=== PATIENT | female | born 1990 | race American Indian/Alaskan Native ===

== ENCOUNTER 2017-07-25 12:58 | Outpatient (CLI) | payer MEDICAID ==
[2017-07-25 13:22] VITALS: BP 109/73
== END 2017-07-25 14:18 | disposition home or self-care (01) ==
LOC: TRG 12:58
PROVIDERS: ATTEND Obstetrics & Gynecology
DX: Z34.93 Encounter for supervision of normal pregnancy, unspecified, third trimester (principal); Z3A.38 38 weeks gestation of pregnancy
CPT/HCPCS: 59025

== ENCOUNTER 2017-07-28 04:27 | Outpatient (CLI) | payer MEDICAID ==
[2017-07-28 04:37] VITALS: BP 125/62
== END 2017-07-28 05:19 | disposition home or self-care (01) ==
LOC: TRG 04:27
PROVIDERS: ATTEND Obstetrics & Gynecology
DX: O47.1 False labor at or after 37 completed weeks of gestation (principal); Z3A.38 38 weeks gestation of pregnancy

== ENCOUNTER 2017-07-28 16:55 | Inpatient (IN) | payer MEDICAID ==
--- NOTE | 2017-07-28 18:59 | History and Physical Report ---
History of Present Illness Date of examination: 07/28/17 Date of admission: 07/28/17 18:19 Chief complaint: My water broke History of present illness: Patient is a 27 year old who presents with rom at 38 weeks. per patient. baby was to be induced for IUGR on Sunday. She was told that it was the first available date to induce a patient. Her prenatals were not available for revies. Will treat for unknown GBS. Past History Past Medical History: no pertinent history Past Surgical History: no surgical history Social history: single - Obstetrical History Expected Date of Delivery: 08/05/17 Actual Gestation: 38 Week(s) 6 Day(s) : 3 Medications and Allergies Allergies Allergy/AdvReac Type Severity Reaction Status Date / Time No Known Allergies Allergy Unverified 07/25/17 12:59 Home Medications Medication Instructions Recorded Confirmed Last Taken Type No Known Home Medications [No 07/28/17 07/28/17 Unknown History Reported Home Medications] Review of Systems All systems: negative Genitourinary: leakage of fluid - Vital Signs Vital signs: Vital Signs Temp Pulse Resp BP Pulse Ox 98.2 F 103 H 16 121/66 100 07/28/17 17:42 07/28/17 17:42 07/28/17 17:42 07/28/17 17:42 07/28/17 17:42 Temp Pulse Resp BP Pulse Ox 98.2 F 104 H 16 121/66 98 07/28/17 17:42 07/28/17 18:09 07/28/17 17:42 07/28/17 17:47 07/28/17 18:09 - Physical Exam Breasts: Cardiovascular: Regular rate, Normal S1, Normal S2 Lungs: Positive: Clear to auscultation, Normal air movement Abdomen: Positive: normal appearance, soft, normal bowel sounds. Negative: distention, tenderness Vulva: both: normal Vagina: Positive: normal moisture. Negative: discharge Cervix: Negative: lesion, discharge Uterus: Positive: normal size, normal contour Adnexa: both: normal Anus/Rectum: Positive: normal perianal skin, heme negative. Negative: rectal mass, hemorrhoids Extremities: Deep Tendon Reflex Grade: Normal +2 - Obstetrical Cervical Dilatation: 1 Cervical Effacement Percentage: 50 station: -2 Uterine Contraction Pattern: Absent Results All other labs normal. Assessment and Plan IUP at 38.6 weeks here with srom. Doing well. Admit for labor. Anticipate . TReat for GBS unknown.
[2017-07-28] MEDS ORDERED: BRETHINE IVP PRN (19:03)
[2017-07-28] MEDS ORDERED: POLYCILLIN/NS 2 GM/100 ML 2 GM/100 ML BAG IV ONE (19:03)
[2017-07-28] MEDS ORDERED: STADOL IV PRN (19:03)
[2017-07-28] MEDS ORDERED: ePHEDrine SULFATE IV PRN (19:03)
[2017-07-28] MEDS ORDERED: PHENERGAN PO PRN (19:03)
[2017-07-28] MEDS ORDERED: MINERAL OIL PO PRN (19:03)
[2017-07-28] MEDS ORDERED: BRETHINE SUB-Q PRN (19:03)
[2017-07-28] MEDS ORDERED: XYLOCAINE 2% INFILTRATI ONE (19:03)
[2017-07-28] MEDS ORDERED: PITOCin/NS 20 UNIT/1000ML DRIP 20 UNITS/1,000 ML BAG IV SCH (20:00)
[2017-07-28 20:43] LABS: Hematocrit 28.3 % (30.3-42.9); Hemoglobin 9.4 gm/dl (10.1-14.3)
[2017-07-28] MEDS: SUBLIMAZE IV PRN ×2 (20:54→23:16)
[2017-07-28] MEDS: PITOCin/NS 30 UNIT/500ML 30 UNITS/500 ML BAG IV SCH ×2 (21:03→23:23)
[2017-07-28] MEDS: LACTATED RINGERS 1,000 ML IV SCH (21:03)
[2017-07-29] MEDS ORDERED: NARCAN 2 MG/2 ML IV PRN (00:39)
[2017-07-29] MEDS ORDERED: ePHEDrine SULFATE IV PRN (00:39)
--- NOTE | 2017-07-29 00:39 | Anesthesia Consultation ---
Anesthesia Consult and Med Hx Date of service: 07/29/17 - Airway Anesthetic Teeth Evaluation: Good ROM Head & Neck: Adequate Mental/Hyoid Distance: Adequate Mallampati Class: Class II Intubation Access Assessment: Probably Good - Pulmonary Exam CTA: Yes - Cardiac Exam Cardiac Exam: RRR - Pre-Operative Health Status ASA Pre-Surgery Classification: ASA2 Proposed Anesthetic Plan: Epidural, Spinal - Pulmonary Hx Asthma: No COPD: No Hx Pneumonia: No - Cardiovascular System Hx Hypertension: No - Central Nervous System Hx Seizures: No Hx Psychiatric Problems: No - Endocrine Hx Renal Disease: No Hx End Stage Renal Disease: No Hx Hypothyroidism: No Hx Hyperthyroidism: No - Hematic Hx Anemia: Yes (DOES NOT TAKE HER IRON PILLS) Hx Sickle Cell Disease: No - Other Systems Hx Alcohol Use: No Hx Obesity: Yes - Additional Comments Anesthesia Medical History Comments: IUP
[2017-07-29 00:45] LABS: Hematocrit 28.1 % (30.3-42.9); Hemoglobin 9.2 gm/dl (10.1-14.3); Mean Corpuscular HGB Conc 33 % (30-34); Mean Corpuscular Hemoglobin 27 pg (28-32); Mean Corpuscular Volume 83 fl (79-97); Platelet Count 347 K/mm3 (140-440); Red Blood Count 3.37 M/mm3 (3.65-5.03); Red Cell Distribution Width 14.9 % (13.2-15.2); White Blood Count 9.9 K/mm3 (4.5-11.0)
[2017-07-29] MEDS: fentaNYL-BUPIV 2 MCG/ML-0.125% 200 MCG/100 ML BAG EPIDURAL SCH ×2 (01:47→09:26)
[2017-07-29] MEDS: POLYCILLIN/NS 1 GM/50 ML 1 GM/50 ML BAG IV SCH ×3 (02:00→14:27)
[2017-07-29] MEDS: PITOCin/NS 30 UNIT/500ML 30 UNITS/500 ML BAG IV SCH (07:04)
[2017-07-29] MEDS: LACTATED RINGERS 1,000 ML IV SCH (08:04)
[2017-07-29] MEDS ORDERED: ZOFRAN IV PRN ×2 (08:14→16:52)
--- NOTE | 2017-07-29 10:38 | Event Note ---
Date: 07/29/17 Patient is a 27 year old who presents with SROM on yesterday at 1700 with ROM since 12 noon. Patient has only progressed to 8.5cm with a thick, non- reducible anterior lip that has been present for the last 3 hours. Patient has been on 20 miu of pitocin overnight with only minimal progress. Per patient she has IUGR and was to be induced on Sunday. Patient advised that at this point a vaginal delivery is unlikely and that she would need a . Patient reluctant to have done. Patient advised that at 12 noon she would be 24 hours with rom and that would be advised as necessary by [facility]. If patient continues to refuse, I will contact patient's provider. will rexamine at noon.
[2017-07-29] MEDS ORDERED: XYLOCAINE 2% INFILTRATI ONE (10:39)
--- NOTE | 2017-07-29 12:09 | Procedure Note ---
OB Delivery Note - Delivery Date of Delivery: 07/29/17 Surgeon: RAMAN MAGANA Estimated blood loss: 200cc - Vaginal Delivery presentation: vertex Delivery position: OA Intrapartum events: prolonged labor- > = 20hr Delivery induction: none Delivery augmentation: pitocin Delivery monitor: external FHT, external uterine Route of delivery: Delivery placenta: spontaneous Delivery cord: 3 umbilical vessels Episiotomy: none Delivery laceration: none Anesthesia: epidural Delivery comments: Viable male delivered over intact perineum when patient turned over. Placenta delivered spontaneously and intact witn 3vc. No lacerations. Excellent hemostasis. - A at 1 minute: 8 at 5 minutes: 9 Gender: Male (5 pounds)
[2017-07-29] MEDS ORDERED: MOTRIN PO ONE ×2 (12:41→15:00)
[2017-07-29] MEDS ORDERED: PHENERGAN PR PRN (16:52)
[2017-07-29] MEDS ORDERED: PHENERGAN PO PRN (16:52)
[2017-07-29] MEDS ORDERED: DULCOLAX PR PRN (16:52)
[2017-07-29] MEDS ORDERED: BENADRYL PO PRN (16:52)
[2017-07-29] MEDS ORDERED: SODIUM CHLORIDE FLUSH SYRINGE 10 ML IV NR (16:52)
[2017-07-29] MEDS ORDERED: MILK OF MAGNESIA PO PRN (16:52)
[2017-07-29] MEDS ORDERED: TYLENOL PO PRN (16:52)
[2017-07-29] MEDS ORDERED: NORCO 5/325 PO PRN (16:52)
[2017-07-29] MEDS ORDERED: TUCKS PAD TP PRN (16:52)
[2017-07-29] MEDS: COLACE PO SCH (21:00)
[2017-07-29] MEDS: MOTRIN PO SCH (22:45)
[2017-07-30 00:32] LABS: Hematocrit 23.3 % (30.3-42.9); Hemoglobin 7.5 gm/dl (10.1-14.3)
[2017-07-30] MEDS: MOTRIN PO SCH ×3 (06:41→23:06)
--- NOTE | 2017-07-30 08:41 | Progress Note ---
Assessment and Plan A/P PPD#2 doing well no complaionts bottle feeding male desires circum counseled on circ h9.2-7.5 iron tabs given d/c Rx written ambulating and pain control f/u in 4 weeks for PP check O+ Subjective - Subjective Date of service: 07/30/17 Principal diagnosis: s/p Patient reports: appetite normal, voiding normally, pain well controlled, flatus , ambulating normally [place]: doing well, bottle feeding Objective - Vital Signs Latest vital signs: Vital Signs Temp Pulse Resp BP BP 07/29/17 23:30 98.6 F 71 16 101/77 07/29/17 20:00 98.6 F 71 16 121/76 07/29/17 15:54 98.3 F 101 H 20 113/64 07/29/17 14:05 98.7 F 103 H 20 110/65 07/29/17 13:41 113 H 113/55 07/29/17 13:26 113 H 122/58 07/29/17 13:11 120 H 122/73 07/29/17 12:56 113 H 116/64 07/29/17 12:41 109 H 117/66 07/29/17 12:26 99 H 121/58 07/29/17 12:12 106 H 134/64 07/29/17 11:56 102 H 122/65 07/29/17 11:53 97.8 F 102 H 18 122/65 07/29/17 11:31 118 H 116/65 07/29/17 11:01 105 H 113/64 07/29/17 10:02 114 H 144/67 07/29/17 09:31 100 H 114/67 07/29/17 09:01 106 H 98/55 Intake and Output 07/29/17 07/30/17 07/30/17 23:59 07:59 15:59 Intake Total 300 600 Balance 300 600 Intake: Intake, Free Water 300 600 - Exam Breasts: Present: normal Cardiovascular: Present: Regular rate, Normal S1 Lungs: Present: Clear to auscultation, Normal air movement Abdomen: Present: normal appearance, soft, normal bowel sounds. Absent: distention, tenderness, guarding Vulva: both: normal Uterus: Present: normal, firm, fundal height below umbilicus. Absent: bogginess , tenderness Extremities: Present: normal Deep Tendon Reflex Grade: Normal +2 - Labs Labs: Abnormal lab results 07/30/17 Range/Units 00:16 Hgb 7.5 L (10.1-14.3) gm/dl Hct 23.3 L (30.3-42.9) %
--- NOTE | 2017-07-30 08:42 | Discharge Summary ---
Providers - Providers Date of Admission: 07/28/17 18:19 Date of discharge: 07/30/17 Attending physician: SADE COMBS Primary care physician: SADE COMBS Hospitalization Reason for admission: rupture of membranes Delivery: Episiotomy: none Laceration: none Incision: normal Other procedures: none complications: none Discharge diagnosis: IUP at term delivered baby: male Condition at discharge: Good Disposition: DC-01 TO HOME OR SELFCARE Plan - Discharge Medications Prescriptions: Ferrous Sulfate [Feosol 325 MG tab] 325 mg PO TID #60 tablet Ibuprofen [Motrin] 600 mg PO Q8H PRN #30 tablet PRN Reason: Pain oxyCODONE /ACETAMINOPHEN [Percocet 5/325] 1 tab PO Q6HR PRN #30 tablet PRN Reason: Pain - Provider Discharge Summary Activity: routine, no sex for 6 weeks, no strenuous exercise Diet: routine Instructions: routine Additional instructions: [] Smoking cessation referral if applicable(refer to patient education folder for contact #) [] Refer to [facility] Book[facility] Call your doctor immediately for: * Fever > 100.5 * Heavy vaginal bleeding ( >1 pad per hour) * Severe persistent headache * Shortness of breath * Reddened, hot, painful area to leg or breast * Drainage or odor from incision. * Keep incision clean and dry at all times and follow doctor's instructions regarding bathing/showering - Follow up plan Follow up: SADE COMBS MD [Primary Care Provider] - 08/22/17
[2017-07-30] MEDS: COLACE PO SCH ×2 (10:26→22:10)
[2017-07-30] MEDS: PRENATAL VITAMIN PO SCH (10:26)
[2017-07-31] MEDS: MOTRIN PO SCH (05:18)
[2017-07-31 08:41] VITALS: BP 110/67
[2017-07-31] MEDS: COLACE PO SCH (09:50)
[2017-07-31] MEDS: PRENATAL VITAMIN PO SCH (09:50)
== END 2017-07-31 11:00 | disposition home or self-care (01) | DRG 775 ==
LOC: TRG 16:55 → LD 18:19 → TRG 18:19 → OB 07-29 14:11
PROVIDERS: ADMIT Obstetrics & Gynecology; ATTEND Obstetrics & Gynecology
PROC: 10E0XZZ Delivery of Products of Conception, External Approach (ICD-10-PCS; principal; 2017-07-29)
PROC: 3E0R3BZ Introduction of Anesthetic Agent into Spinal Canal, Percutaneous Approach (ICD-10-PCS; 2017-07-29)
PROC: 00HU33Z Insertion of Infusion Device into Spinal Canal, Percutaneous Approach (ICD-10-PCS; 2017-07-29)
DX: O63.9 Long labor, unspecified (principal); Z37.0 Single live birth; Z3A.38 38 weeks gestation of pregnancy; Z68.30 Body mass index [BMI] 30.0-30.9, adult; O99.02 Anemia complicating childbirth; D64.9 Anemia, unspecified; O99.214 Obesity complicating childbirth; E66.9 Obesity, unspecified; O36.5930 Maternal care for other known or suspected poor fetal growth, third trimester, not applicable or unspecified
CPT/HCPCS: 36415; 85014; 85018; 85027; 86592; 86850; 86900; 86901; 88307; 99211; G0463; J0290; J2405; J2590; J3010; J7120

== ENCOUNTER 2018-03-06 11:40 | Emergency (ER) | payer MEDICAID ==
[2018-03-06 11:46] VITALS: BP 115/70
[2018-03-06] MEDS ORDERED: MOTRIN PO ONE (12:10)
--- NOTE | 2018-03-06 12:13 | Emergency Department Report ---
Upper Extremity - HPI Upper Extremity: Right Wrist Occurred When: Today Mechanism: Hyperextension Severity: moderate Symptoms: Yes Pain with Movement, No Deformity, No Limited Range of Movement, No Numbness, No Weakness, No Swelling, No Bruising/Ecchymosis, No Laceration or Abrasion Other History: 27-year-old female past medical history none presents with complaint of several weeks of right wrist pain. Patient denies any direct trauma. States that her right wrist has been aching her for some time at least. 3 weeks. States that last night while playing with his son she may have hyperextended her right wrist. Denies any paresthesias. Denies any direct trauma otherwise. Patient visibly ranging her right wrist without significant difficulty. <CARLIN FARLEY - Last Filed: 03/06/18 13:10> <ROGER ISLAS - Last Filed: 03/06/18 16:19> - HPI Chief Complaint: Extremity Injury, Upper Stated Complaint: RIGHT WRIST PAIN Time Seen by Provider: 03/06/18 12:10 ED Review of Systems ROS: Stated complaint: RIGHT WRIST PAIN Other details as noted in HPI Constitutional: denies: chills, fever Eyes: denies: eye pain, eye discharge, vision change ENT: denies: ear pain, throat pain Respiratory: denies: cough, shortness of breath, wheezing Cardiovascular: denies: chest pain, palpitations Endocrine: no symptoms reported Gastrointestinal: denies: abdominal pain, nausea, diarrhea Genitourinary: denies: urgency, dysuria, discharge Musculoskeletal: as per HPI, arthralgia. denies: back pain, joint swelling Skin: denies: rash, lesions Neurological: denies: headache, weakness, paresthesias Psychiatric: denies: anxiety, depression Hematological/Lymphatic: denies: easy bleeding, easy bruising <CARLIN FARLEY - Last Filed: 03/06/18 13:10> ROS: Stated complaint: RIGHT WRIST PAIN Other details as noted in HPI <ROGER ISLAS - Last Filed: 03/06/18 16:19> ED Past Medical Hx - Past Medical History Previous Medical History?: No Hx Hypertension: No Hx Congestive Heart Failure: No Hx Diabetes: No Hx Deep Vein Thrombosis: No Hx Renal Disease: No Hx Sickle Cell Disease: No Hx Seizures: No Hx Asthma: No Hx COPD: No Hx HIV: No - Surgical History Past Surgical History?: No - Social History Smoking Status: Never Smoker Substance Use Type: Marijuana <CARLIN FARLEY - Last Filed: 03/06/18 13:10> <ROGER ISLAS - Last Filed: 03/06/18 16:19> - Medications Home Medications: Home Medications Medication Instructions Recorded Confirmed Last Taken Type Ferrous Sulfate [Feosol 325 MG tab] 325 mg PO TID #60 tablet 07/30/17 Unknown Rx Ibuprofen [Motrin] 600 mg PO Q8H PRN #30 tablet 07/30/17 Unknown Rx oxyCODONE /ACETAMINOPHEN [Percocet 1 tab PO Q6HR PRN #30 tablet 07/30/17 Unknown Rx 5/325] Ibuprofen [Motrin] 800 mg PO Q8HR PRN #20 tablet 03/06/18 Unknown Rx Upper Extremity Exam - Exam General: Vital signs noted. No distress. Alert and acting appropriately. Head and Torso: No HEENT Abnormality, No Neck Tenderness, No Chest/Lungs Abnormality, No Abdominal Tenderness, No Back Tenderness Shoulder Exam: Yes Normal Range of Motion in Shoulder, No Shoulder Tenderness, No Clavicle Tenderness, No Shoulder Deformity, No AC Joint Tenderness Arm Exam: No Arm/Humerus Tenderness, No Arm Deformity Elbow: No Elbow Tenderness, No Normal Range of Motion in Elbow, No Elbow Deformity Forearm: No Forearm Tenderness, No Forearm Deformity, No Pain with Pronation, No Pain with Supination Wrist: Yes Normal ROM in Wrist, No Wrist Tenderness, No Wrist Deformity, No Snuffbox Tenderness, No Pain with Axial Thumb Compression Hand: Yes Normal ROM in Digit(s) (range of motion all digits clinically intact there is no snuffbox tenderness on exam), No Hand Tenderness, No Hand Deformity , No Digit Tenderness, No Digit(s) Deformity, No Tendon Dysfunction CMS Exam: Yes Normal Distal Pulses (distal pulses strong to palpation), Yes Normal Capillary Refill (distal cap refill intact), Yes Normal Distal Sensation , No Broken Skin <CARLIN FARLEY - Last Filed: 03/06/18 13:10> - Exam General: Vital signs noted. No distress. Alert and acting appropriately. <ROGER ISALS - Last Filed: 03/06/18 16:19> ED Course Vital Signs 03/06/18 11:42 Temperature 98.5 F Pulse Rate 78 Respiratory 18 Rate Blood Pressure 115/70 O2 Sat by Pulse 100 Oximetry <CARLIN FARLEY - Last Filed: 03/06/18 13:10> Vital Signs 03/06/18 03/06/18 11:42 12:22 Temperature 98.5 F Pulse Rate 78 Respiratory 18 16 Rate Blood Pressure 115/70 O2 Sat by Pulse 100 Oximetry <ROGER ISLAS - Last Filed: 03/06/18 16:19> ED Medical Decision Making - Medical Decision Making A/P: Right wrist sprain 1-x-ray unremarkable. Neurovascular and motor exam right upper extremity clinically intact and normal 2-Motrin when necessary 3-Garrick wrap right wrist, patient states she already has a splint at home 4- follow-up with primary care and orthopedics. Patient states she made a follow-up appointment with orthopedics and has a follow-up within 1 week. <CARLIN FARLEY - Last Filed: 03/06/18 13:10> - Medical Decision Making I did not see this patient. I was available for consultation the entire time the patient was in the department. I have reviewed the CLINIC OFFICE MANAGER/PAs note and agree with the plan. <ROGER ISLAS - Last Filed: 03/06/18 16:19> Critical care attestation.: If time is entered above; I have spent that time in minutes in the direct care of this critically ill patient, excluding procedure time. <CARLIN FARLEY - Last Filed: 03/06/18 13:10> Critical care attestation.: If time is entered above; I have spent that time in minutes in the direct care of this critically ill patient, excluding procedure time. <ROGER ISLAS - Last Filed: 03/06/18 16:19> ED Disposition Is pt being admited?: No Does the pt Need Aspirin: No Time of Disposition: 13:10 <CARLIN FARLEY - Last Filed: 03/06/18 13:10> <ROGER ISLAS - Last Filed: 03/06/18 16:19> Disposition: DC-01 TO HOME OR SELFCARE Condition: Stable Instructions: RICE Therapy (ED), Wrist Sprain (ED) Prescriptions: Ibuprofen [Motrin] 800 mg PO Q8HR PRN #20 tablet PRN Reason: Pain , Severe (7-10) Referrals: SORAYA ELIAS MD [Staff Physician] - 3-5 Days Forms: Work/School Release Form(ED)
--- NOTE | 2018-03-06 12:34 | XRay Report ---
RIGHT WRIST, 4 VIEWS: History: Wrist pain. Routine views demonstrate the carpal bones to be well mineralized with well preserved bony mineralization and interosseous joint spaces. The carpal and adjacent articular bones have normal contours. The surrounding soft tissues are unremarkable. IMPRESSION: Unremarkable right wrist.
== END 2018-03-06 13:31 | disposition home or self-care (01) ==
LOC: ED 11:40
DX: M25.531 Pain in right wrist (principal); F12.90 Cannabis use, unspecified, uncomplicated

== ENCOUNTER 2018-06-08 08:11 | Emergency (ER) | payer MEDICAID ==
[2018-06-08 08:18] VITALS: BP 115/82
--- NOTE | 2018-06-08 09:38 | Emergency Department Report ---
ED ENT HPI - General Chief complaint: Dental/Oral Stated complaint: LT SIDE FACE SWOLLEN Time Seen by Provider: 06/08/18 09:06 Source: patient Mode of arrival: Ambulatory Limitations: No Limitations - History of Present Illness Initial comments: 28-year-old female presents to the ED with complaint of toothache. Patient reports pain to left upper molar and left facial swelling since yesterday. Denies fever, nausea, vomiting. Pt reports penicillin allergy MD complaint: tooth pain -: days(s) (1) Location: tooth # (14) Severity: moderate Quality: other (throbbing) Consistency: constant Improves with: none Worsens with: none Associated Symptoms: toothache. denies: fever, cough, sore throat - Related Data Previous Rx's Medication Instructions Recorded Last Taken Type Ferrous Sulfate [Feosol 325 MG tab] 325 mg PO TID #60 tablet 07/30/17 Unknown Rx Ibuprofen [Motrin] 600 mg PO Q8H PRN #30 tablet 07/30/17 Unknown Rx oxyCODONE /ACETAMINOPHEN [Percocet 1 tab PO Q6HR PRN #30 tablet 07/30/17 Unknown Rx 5/325] Ibuprofen [Motrin] 800 mg PO Q8HR PRN #20 tablet 03/06/18 Unknown Rx Clindamycin [Clindamycin CAP] 300 mg PO Q8H 7 Days #28 cap 06/08/18 Unknown Rx Fluconazole [Diflucan TAB] 150 mg PO ONCE #1 tablet 06/08/18 Unknown Rx Naproxen [Naprosyn] 500 mg PO BID #20 tablet 06/08/18 Unknown Rx Allergies Allergy/AdvReac Type Severity Reaction Status Date / Time No Known Allergies Allergy Verified 03/06/18 11:45 ED Dental HPI - General Chief complaint: Dental/Oral Stated complaint: LT SIDE FACE SWOLLEN Time Seen by Provider: 06/08/18 09:06 Source: patient Mode of arrival: Ambulatory Limitations: No Limitations - Related Data Previous Rx's Medication Instructions Recorded Last Taken Type Ferrous Sulfate [Feosol 325 MG tab] 325 mg PO TID #60 tablet 07/30/17 Unknown Rx Ibuprofen [Motrin] 600 mg PO Q8H PRN #30 tablet 07/30/17 Unknown Rx oxyCODONE /ACETAMINOPHEN [Percocet 1 tab PO Q6HR PRN #30 tablet 07/30/17 Unknown Rx 5/325] Ibuprofen [Motrin] 800 mg PO Q8HR PRN #20 tablet 03/06/18 Unknown Rx Clindamycin [Clindamycin CAP] 300 mg PO Q8H 7 Days #28 cap 06/08/18 Unknown Rx Fluconazole [Diflucan TAB] 150 mg PO ONCE #1 tablet 06/08/18 Unknown Rx Naproxen [Naprosyn] 500 mg PO BID #20 tablet 06/08/18 Unknown Rx Allergies Allergy/AdvReac Type Severity Reaction Status Date / Time No Known Allergies Allergy Verified 03/06/18 11:45 ED Review of Systems ROS: Stated complaint: LT SIDE FACE SWOLLEN Other details as noted in HPI Comment: All other systems reviewed and negative Constitutional: denies: chills, fever ENT: dental pain Gastrointestinal: denies: nausea, vomiting ED Past Medical Hx - Past Medical History Previous Medical History?: No Hx Hypertension: No Hx Congestive Heart Failure: No Hx Diabetes: No Hx Deep Vein Thrombosis: No Hx Renal Disease: No Hx Sickle Cell Disease: No Hx Seizures: No Hx Asthma: No Hx COPD: No Hx HIV: No - Surgical History Past Surgical History?: No - Social History Smoking Status: Never Smoker Substance Use Type: None - Medications Home Medications: Home Medications Medication Instructions Recorded Confirmed Last Taken Type Ferrous Sulfate [Feosol 325 MG tab] 325 mg PO TID #60 tablet 07/30/17 Unknown Rx Ibuprofen [Motrin] 600 mg PO Q8H PRN #30 tablet 07/30/17 Unknown Rx oxyCODONE /ACETAMINOPHEN [Percocet 1 tab PO Q6HR PRN #30 tablet 07/30/17 Unknown Rx 5/325] Ibuprofen [Motrin] 800 mg PO Q8HR PRN #20 tablet 03/06/18 Unknown Rx Clindamycin [Clindamycin CAP] 300 mg PO Q8H 7 Days #28 cap 06/08/18 Unknown Rx Fluconazole [Diflucan TAB] 150 mg PO ONCE #1 tablet 06/08/18 Unknown Rx Naproxen [Naprosyn] 500 mg PO BID #20 tablet 06/08/18 Unknown Rx ED Physical Exam - General Limitations: No Limitations General appearance: alert, in no apparent distress - Head Head exam: Present: atraumatic, normocephalic - Eye Eye exam: Present: normal appearance - ENT ENT exam: Present: mucous membranes moist, other (mild swelling noted to the left face; tenderness to percussion present to tooth #14) - Neck Neck exam: Present: normal inspection - Respiratory Respiratory exam: Present: normal lung sounds bilaterally. Absent: respiratory distress - Cardiovascular Cardiovascular Exam: Present: regular rate, normal rhythm - Extremities Exam Extremities exam: Present: normal inspection - Neurological Exam Neurological exam: Present: alert, oriented X3, CN II-XII intact - Psychiatric Psychiatric exam: Present: normal affect, normal mood - Skin Skin exam: Present: warm, dry, intact, normal color ED Course Vital Signs 06/08/18 06/08/18 06/08/18 08:16 09:55 10:05 Temperature 98.6 F Pulse Rate 83 Respiratory 18 18 18 Rate Blood Pressure 115/82 O2 Sat by Pulse 99 Oximetry ED Medical Decision Making - Medical Decision Making 28-year-old female with likely infected maxillary molar. Mild facial swelling present. Will place patient on antibiotics, advised outpatient dental follow- up. - Differential Diagnosis dental pain, dental caries Critical care attestation.: If time is entered above; I have spent that time in minutes in the direct care of this critically ill patient, excluding procedure time. ED Disposition Clinical Impression: Dentalgia Disposition: DC-01 TO HOME OR SELFCARE Is pt being admited?: No Condition: Stable Instructions: Dental Caries (ED), Toothache (ED) Prescriptions: Clindamycin [Clindamycin CAP] 300 mg PO Q8H 7 Days #28 cap Fluconazole [Diflucan TAB] 150 mg PO ONCE #1 tablet Naproxen [Naprosyn] 500 mg PO BID #20 tablet Referrals: PRIMARY CARE, [Primary Care Provider] - 3-5 Days Time of Disposition: 09:42
[2018-06-08] MEDS ORDERED: TORADOL IM ONE (09:51)
[2018-06-08] MEDS ORDERED: TORADOL ONE (09:55)
== END 2018-06-08 10:09 | disposition home or self-care (01) ==
LOC: ED 08:11
DX: K08.89 Other specified disorders of teeth and supporting structures (principal); R22.0 Localized swelling, mass and lump, head
CPT/HCPCS: 96372; 99282; J1885